=== PATIENT | female | born 1985 ===

== ENCOUNTER 2025-04-10 12:06 | Outpatient (CLI) | payer OTHER | END 2025-04-10 12:07 | disposition home or self-care (01) | LOC: PRENATAL 12:06 | PROVIDERS: ATTEND Obstetrics & Gynecology Maternal & Fetal Medicine | DX: O26.842 Uterine size-date discrepancy, second trimester (principal); O26.852 Spotting complicating pregnancy, second trimester; O44.02 Complete placenta previa NOS or without hemorrhage, second trimester; O28.3 Abnormal ultrasonic finding on antenatal screening of mother; O09.212 Supervision of pregnancy with history of pre-term labor, second trimester; Z3A.16 16 weeks gestation of pregnancy ==